=== PATIENT | female | born 1945 | race Caucasian/White ===

== ENCOUNTER → 2018-03-11 | Outpatient (CLI) | payer OTHER, BC ==
[~2018-03-11] MED LIST: ACYCLOVIR 200200 MG; ACYCLOVIR 800800 MG PO; ALPRAZOLAM 0.50.5 M1 PO; BENTYL 10 MG CA10 MG PO; BONIVA150 MG PO; BYSTOLIC 5 MG5 M1 PO; BYSTOLIC2.5 MG; DOCUSATE SODIU100 MG PO; FLUVOXAMINE MAL25 MG PO; HYDROCODON-ACE1 EAC7 PO; LEVAQUIN 500 M500 M4 PO; NICOTINE1 EAC2; SENNA LAXATIVE1 EACH PO; TRICOR145 MG PO; TRICOR48 MG; VALACYCLOVIR500 MG; ZANTAC 150MG T150 MG; ZETIA10 MG PO
== END ==
LOC: RAD 14:59
DX: Z12.31 Encounter for screening mammogram for malignant neoplasm of breast (principal)

== ENCOUNTER → 2018-07-17 | Outpatient (CLI) | payer OTHER, BC | LOC: SEN 09:53 | DX: I10 Essential (primary) hypertension (principal); E78.5 Hyperlipidemia, unspecified; F32.9 Major depressive disorder, single episode, unspecified; R41.9 Unspecified symptoms and signs involving cognitive functions and awareness; R53.83 Other fatigue; B00.9 Herpesviral infection, unspecified ==

== ENCOUNTER → 2020-03-07 | Outpatient (CLI) | payer OTHER, BC | LOC: RAD 13:40 | PROVIDERS: ATTEND Obstetrics & Gynecology | DX: Z12.31 Encounter for screening mammogram for malignant neoplasm of breast (principal) ==

== ENCOUNTER → 2020-04-07 | Outpatient (CLI) | payer OTHER, BC | LOC: ULTRA 14:57 | PROVIDERS: ATTEND Internal Medicine | DX: I65.23 Occlusion and stenosis of bilateral carotid arteries (principal) ==

== ENCOUNTER → 2021-07-05 | Outpatient (CLI) | payer OTHER, BC | LOC: BC 13:24 | PROVIDERS: ATTEND Internal Medicine Rheumatology | DX: Z12.31 Encounter for screening mammogram for malignant neoplasm of breast (principal) ==